=== PATIENT | female | born 1930 | race Caucasian/White ===

== ENCOUNTER 2017-02-09 04:32 | Inpatient (IN) ==
[2017-02-09] MEDS ORDERED: DUONEB (A & A) INH ONE (04:48)
--- NOTE | 2017-02-09 04:54 | PROVIDER DOCUMENTATION ---
HPI-Respiratory General - General Chief Complaint: Shortness of Breath Stated Complaint: COUGH Time Seen by Provider: 02/09/17 04:41 Source: patient, family (daughter) - History of Present Illness-Resp Nature of Presenting Problem: pt states she has COPD and chronic SOB and a chronic cough all of which are unchanged however this morning when she was coughing she coughed up large clots several times. Since then the amount of blood has greatly reduced to just blood tinged sputum. Her voice has been changing over the last several months and sounds clogged however it is not any worse this morning. She is having no pain or difficulty swallowing. No fever/chills. She wears O@ at 2l/m at home Review of Systems - Adult - REVIEW OF SYSTEMS - ADULT Constitutional: denies: chills, fever Eyes: denies: discharge Ears, Nose, Mouth & Throat: denies: ear pain, sinus problem, mouth swelling, throat pain, throat swelling Cardiovascular: denies: chest pain, edema, palpitations Respiratory: reports: chronic cough, hemoptysis, shortness of breath. denies: excessive sputum production, pleurisy Gastrointestinal: denies: abdominal pain, hematemesis, diarrhea, nausea, rectal bleeding, vomiting Genitourinary: reports: dysuria, frequency, flank pain Musculoskeletal: reports: back pain Integumentary: reports: no symptoms reported. denies: rash Neurological: reports: no symptoms reported Psychiatric: reports: no symptoms reported Endocrine: reports: no symptoms reported Hematologic/Lymphatic: reports: no symptoms reported Allergic/Immunologic: reports: no symptoms reported All Other Systems: Reviewed and Negative Past History - Adult - PAST MEDICAL HISTORY-ADULT Review of Records: reports: Old Records Reviewed, Nursing Assessment Review, Medications Reviewed, Social history reviewed & non-contributory. - SOCIAL HISTORY Living Situation: family Physical Exam-General - PHYSICAL EXAM-ADULT Initial Vital Signs Reviewed: Yes - CONSTITUTIONAL General Appearance: appears well, alert, no apparent distress - EYES Eyes: pink conjunctivae. negative: scleral icterus - HEAD, EARS, NOSE, MOUTH & THROAT HENMT: normocephalic/atraumatic, normal ENT inspection, pharynx normal. negative: angioedema - NECK Neck: non-tender, full range of motion, supple, normal inspection - RESPIRATORY Respiratory: chest non-tender, no pleuratic chest pain, no respiratory distress , no accessory muscle use, wheezing (mild). negative: lungs clear, normal breath sounds - CARDIOVASCULAR Cardiovascular: regular rate, rhythm, no edema, no murmur - GASTROINTESTINAL (ABDOMEN) Abdominal Exam: normal bowel sounds, non tender, soft, no organomegaly, no pulsatile mass - MUSCULOSKELETAL Back Exam: normal inspection, no CVA tenderness, no vertebral tenderness Extremity: normal range of motion, non-tender, normal gait, normal inspection, no pedal edema, no calf tenderness - SKIN Integumentary: normal color, normal turgor, warm/dry - NEUROLOGIC Neurologic: grossly normal, no motor/sensory deficits - PSYCHIATRIC Psych/Mental Status: normal mood/affect, normal thought content, normal thought process, oriented x 3 Progress - PLAN OF CARE/RESULTS Progress/Plan/Lab Results: Vital Signs - 8 hr 02/09/17 04:38 02/09/17 05:13 02/09/17 06:25 Temperature 97.8 F Pulse Rate 82 86 90 Respiratory Rate 22 23 21 Blood Pressure 137/91 135/90 O2 Sat by Pulse Oximetry 94 L 94 L 95 02/09/17 08:04 Temperature Pulse Rate 82 Respiratory Rate 22 Blood Pressure 143/80 O2 Sat by Pulse Oximetry 96 02/09/17 04:42 - Final Sputum Laboratory Results - last 24 hr 02/09/17 02/09/17 02/09/17 05:00 05:00 05:00 WBC 5.57 RBC 3.78 L Hgb 11.4 L Hct 35.2 L MCV 93.1 MCH 30.2 MCHC 32.4 L RDW Std Deviation 14.2 Plt Count 174 MPV 11.7 H Immature Gran % (Auto) 0.0 Neut % (Auto) 68.7 Lymph % (Auto) 16.7 L Navarro % (Auto) 12.4 H Eos % (Auto) 2.0 Baso % (Auto) 0.2 Immature Gran # (Auto) 0.00 Neut # (Auto) 3.83 Lymph # (Auto) 0.93 L Navarro # (Auto) 0.69 H Eos # (Auto) 0.11 Baso # (Auto) 0.01 PT INR PTT (Actin FS) D-Dimer 0.29 Sodium 140 Potassium 4.3 Chloride 97 L Carbon Dioxide 33 Anion Gap 10 BUN 33 H Creatinine 1.3 H Estimated GFR/1.73 m2 39 BUN/Creatinine Ratio 25 Glucose 99 Calculated Osmolality 287 Calcium 9.1 Total Bilirubin 0.27 AST 13 ALT 6 L Alkaline Phosphatase 71 Total Protein 6.8 Albumin 4.0 Globulin 2.8 Albumin/Globulin Ratio 1.4 02/09/17 05:00 WBC RBC Hgb Hct MCV MCH MCHC RDW Std Deviation Plt Count MPV Immature Gran % (Auto) Neut % (Auto) Lymph % (Auto) Navarro % (Auto) Eos % (Auto) Baso % (Auto) Immature Gran # (Auto) Neut # (Auto) Lymph # (Auto) Navarro # (Auto) Eos # (Auto) Baso # (Auto) PT 10.0 INR 0.96 PTT (Actin FS) 26.9 D-Dimer Sodium Potassium Chloride Carbon Dioxide Anion Gap BUN Creatinine Estimated GFR/1.73 m2 BUN/Creatinine Ratio Glucose Calculated Osmolality Calcium Total Bilirubin AST ALT Alkaline Phosphatase Total Protein Albumin Globulin Albumin/Globulin Ratio Orders Category Date Time Status CHEST-2 VIEWS [RAD] Stat Exams 02/09/17 04:[address] THORAX W/CONTRAST [CT] Stat Exams 02/09/17 06:49 Draft BLOOD CULTURE [BLDCUL] Stat Lab 02/09/17 09:06 Uncollected CBC WITH ELECTRONIC DIFF [HEME] Stat Lab 02/09/17 05:00 Completed CMP [COMPREHENSIVE METABOLIC PANEL] [CHEM] Stat Lab 02/09/17 05:00 Completed Ddimer [D-DIMER] [CHEM] Stat Lab 02/09/17 05:00 Completed PROTIME WITH INR [COAG] Stat Lab 02/09/17 05:00 Completed PTT [COAG] Stat Lab 02/09/17 05:00 Completed SPUTUM CULTURE WITH GRAM STAIN [RM] Routine Lab 02/09/17 04:42 Results 0.9% Sodium Chloride Inj [Ns] 1,000 ml Med 02/09/17 06:50 Discontinued IV 500 mls/hr Albuterol 2.5MG/Ipratrop 0.5MG [Duoneb (A & A)] Med 02/09/17 04:48 Discontinued 3 ml INH NOW ONE CefTRIAXONE 1 GM/NS [Rocephin 1 gm/Ns] Med 02/09/17 09:06 Active 1 gm in 50 ml IV NOW Levofloxacin 500 mg/D5w [Levaquin 500 mg/D5w] Med 02/09/17 09:06 Active 500 mg in 100 ml IV NOW Aerosol Treatments Routine Oth 02/09/17 04:48 Completed Aerosol Treatments Stat Ot 02/09/17 04:48 Completed Result Diagrams: 02/09/17 05:00 02/09/17 05:00 - CONSULTS/PCP/HOSPITALIST Notification Time Discussed: : Reason/Comments: Admit to Dr. Calderon Consult Disposition: Admit Departure - Departure Time of Disposition Decision: : DIAGNOSIS: Hematemesis Qualifiers: Nausea presence: without nausea Qualified Code(s): K92.0 - Hematemesis Pneumonia Qualifiers: Pneumonia type: due to unspecified organism Laterality: left Lung location: unspecified part of lung Qualified Code(s): J18.9 - Pneumonia, unspecified organism Disposition: ADMITTED INPATIENT 09 Certified Medical Emergency: Emergent Condition: Stable Referrals and Follow-Ups: Ashvin Alvarado [Primary Care Provider] - - Critical Care Note This patient required my direct & personal management of CC.: No
[2017-02-09 05:11] LABS: MANUAL DIFF NEEDED? NO
[2017-02-09 05:15] LABS: HEMOGLOBIN 11.4 g/dL (12.0-16.0); MCH 30.2 PG (27-31); MCV 93.1 FL (81-99)
[2017-02-09 05:19] LABS: BASO% 0.2 % (0.0-0.8); EOS# 0.11 X1000 (0.0-0.7); HEMATOCRIT 35.2 % (37.0-47.0); LYMPH# 0.93 X1000 (1.2-3.4); LYMPH% 16.7 % (20.5-51.1); MCHC 32.4 g/dL (33-37); MONO# 0.69 X1000 (0.11-0.59); MONO% 12.4 % (1.7-9.3); MPV 11.7 FL (7.4-10.4); NEUT% 68.7 % (42.2-75.2); PLT 174 X1000 (130-400); RBC 3.78 XMIL (4.2-5.4)
[2017-02-09 05:23] LABS: INR 0.96; PTT 26.9 Seconds (22.0-36.0)
[2017-02-09 05:31] LABS: CALCIUM 9.1 mg/dL (8.8-10.2); POTASSIUM 4.3 mmol/L (3.5-5.1); TOTAL BILIRUBIN 0.27 mg/dL (0.20-1.00); TOTAL PROTEIN 6.8 g/dL (6.3-8.3)
[2017-02-09] MEDS ORDERED: NS 1,000 ML IV ONE (06:50)
--- NOTE | 2017-02-09 08:49 | Diag Imaging Result Document ---
PROCEDURE NAME: CHEST-2 VIEWS - 02/09/2017 CHEST, TWO VIEWS: FINDINGS: The lungs are hyperexpanded. There is an increased AP diameter to the chest. The heart is borderline mildly prominent. The pulmonary vessels are small. There is a granuloma in the mid left lung and there are small calcified lymph nodes. No consolidation. Mild scoliosis. IMPRESSION: Emphysema.
[2017-02-09] MEDS ORDERED: LEVAQUIN 500 MG/D5W 500 MG/100 ML IVPB IV ONE (09:06)
[2017-02-09] MEDS ORDERED: ROCEPHIN 1 GM/NS 1 GM/50 ML IVPB IV ONE (09:06)
--- NOTE | 2017-02-09 09:06 | Diag Imaging Result Document ---
PROCEDURE NAME: CT THORAX W/CONTRAST - 02/09/2017 CT CHEST WITH INTRAVENOUS CONTRAST, 02/09/2017: A CT dose reduction protocol was used. COMPARISON: Previous chest x-ray. FINDINGS: There is a noncalcified pulmonary nodule in the left upper lobe measuring 12.5 mm. This is visible in the lateral mid lung on the chest x-ray. There is significant bronchitis particularly of the lingula and lower lobe bronchi. There is also some bronchopneumonia in the lingula. There is some mucous plugging in small airways in the left lower lobe. There is some hazy atelectasis or infiltrate in the posterior lung base on the right. There is significant scoliosis at the upper lumbar spine. There is severe degeneration throughout the entire spine. No acute bony lesions. The thyroid gland is somewhat enlarged indicating goiter is present. There is heavy vascular disease of the vessels of the aortic arch. IMPRESSION: 1. Moderate size, indeterminate nodule in the left upper lobe. 2. Fluid throughout bronchi and in the left lung. May represent pulmonary hemorrhage from a left sided bronchus such as the mainstem bronchus. 3. Probable atelectasis or scarring in the right lung base. [facility]
[2017-02-09] MEDS ORDERED: SODIUM CHLORIDE 0.9% INJ SCH (13:00)
--- NOTE | 2017-02-09 14:35 | Diag Imaging Result Document ---
PROCEDURE NAME: NECK W/O CONTRAST - 02/09/2017 CT OF THE NECK WITHOUT CONTRAST: FINDINGS: There are dense calcifications in the carotid bulbs bilaterally. The nasopharynx is unremarkable in appearance. The salivary glands are symmetrical. There is no evidence of significant adenopathy. Above the level of the glottis and more or less obscuring the epiglottis there is a soft tissue appearing mass measuring 3.5 x 2.2 x 3.5 cm. There is apical pleural fibrosis bilaterally. There are degenerative disk and facet changes in the cervical spine. There is a mucous retention cyst in the right maxillary sinus. IMPRESSION: 1. Epiglottic mass as described. 2. Further evaluation with contrast and/or MRI may be desirable.
[2017-02-09] MEDS: ZITHROMAX 500 MG/NS 500 MG/250 ML IVPB IV SCH (15:09)
[2017-02-09] MEDS: NS 1,000 ML IV SCH (15:09)
[2017-02-09] MEDS: NICODERM PATCH TD SCH (15:09)
[2017-02-09] MEDS: PROTONIX IV SCH (15:09)
--- NOTE | 2017-02-09 15:24 | HISTORY AND PHYSICAL ---
PCP: Dr. Alvarado. CHIEF COMPLAINT: Hemoptysis. HISTORY OF PRESENT ILLNESS: Mrs. Avila is a pleasant 86-year-old female with a history of COPD on 20/04 home O2, continued nicotine dependence, arthritis and type 2 diabetes who presents with fairly severe hemoptysis that began acutely this morning. She has had however chronic cough for few weeks now. She has been coughing up clear sputum and denies any fevers or chills. She has had a difficult time talking because she has what she feels like she has throat fullness, possibly upper airway fullness. She became concerned when she started having hemoptysis and came to the ER. She does report that she has been coughing up clots this morning but since then has changed to a blood tinged sputum. Again no fevers or chills. No chest pain. No real shortness of breath to speak of. She denies lower extremity edema. No orthopnea, no abdominal pain, nausea or vomiting. In the ER a CT of the chest with contrast was done which showed moderate-sized indeterminate nodule left upper lobe, bronchitis with bronchopneumonia in the left lung and probable atelectasis or scarring in the lung base on the right. Labs show mild anemia, mild renal insufficiency otherwise negative. Her O2 saturations are within normal limits on oxygen and she is going to be admitted further treatment and evaluation. PAST MEDICAL HISTORY: 1. COPD on home O2. 2. Arthritis, patient is unsure she has rheumatoid or osteo. 3. Type 2 diabetes. 4. IBS. 5. Hypothyroidism. 6. GERD. SURGICAL HISTORY: Hysterectomy. SOCIAL HISTORY: Patient smokes half pack a day. She is . She denies alcohol use or drug use. She lives with her daughter. FAMILY HISTORY: Mother from colon cancer. Father from stroke and heart attack. They were both 93. ALLERGIES: No known drug allergies. HOME MEDICATIONS: Pepcid 20 mg daily, Synthroid 75 mcg daily, Linzess 290 mcg daily, metformin 1000 mg daily. REVIEW OF SYSTEMS: Fourteen-point review of systems obtained and found to be negative with the exception of the HPI. PHYSICAL EXAMINATION: VITAL SIGNS: Blood pressure is 119/68, heart rate 93, respiratory rate 18, O2 saturation 95% on 2 L, temperature is 99 degrees. GENERAL: This is an elderly and frail-appearing 86-year-old female lying in hospital bed in no acute distress. NEUROLOGIC: The patient is awake, alert, oriented. She follows commands without focal deficits. HEENT: Head is atraumatic, normocephalic. Her pupils are equal, round and reactive to light. Oral mucosa is moist. Trachea is midline. No JVD. No carotid bruits. CHEST: Diminished throughout with crackles and rhonchi on the left greater than the right. CV: Regular rate and rhythm. S1-S2 is noted a 1/6 systolic ejection murmur. GI: Soft, nondistended, nontender, bowel sounds are active. EXTREMITIES: No edema, clubbing, cyanosis. Pulses are palpable bilaterally. DIAGNOSTIC DATA: Chest CT please see HPI. Chest x-ray shows emphysema. WBC 5.57, hemoglobin 11.4, hematocrit 35.2, platelet count 174,000, INR 0.96, D-dimer 0.29, sodium 140, potassium 4.3, chloride 97, CO2 33, anion gap 10, BUN 33, creatinine 1.3, GFR 39, calcium 9.1. LFTs within normal limits. ASSESSMENT AND PLAN: 1. Hemoptysis: Likely secondary to pneumonia and bronchitis. Will treat both of those with antibiotics and breathing treatments. Will also consult with Dr. Uriarte. Blood cultures have been obtained. 2. Lung nodule: Dr. Uriarte has been consulted, will likely need further evaluation with biopsy. 3. Globus Pharyngis/Dysphagia: We will check a CT of the neck to rule out mass, may possibly need ENT consult. 4. Community-acquired pneumonia: Continue Rocephin and azithromycin, breathing treatments and aggressive pulmonary toilet. 5. Chronic obstructive pulmonary disease exacerbation: Patient is not wheezing so will hold off on steroids for now but continue with standard COPD treatment including breathing treatments, nebulizers, aggressive pulmonary toilet. 6. Type 2 diabetes: Check hemoglobin A1c. Add pattern sugars. 7. Nicotine dependence: Patient has been highly advised to quit smoking. Will write a nicotine patch and continue daily cessation education. Further recommendations to follow. Dictated by WOLF Deleon for Veena Vidales MD cc: MD Veena Tom MD [facility]
[2017-02-09] MEDS: DUONEB (A & A) INH SCH ×3 (16:14→23:20)
[2017-02-09] MEDS: HUMALOG SUBQ SCH ×2 (17:31→21:42)
--- NOTE | 2017-02-09 18:11 | CONSULTATION ---
DATE OF CONSULTATION: 02/09/2017 HISTORY OF PRESENT ILLNESS: An 86-year-old admitted with cough, hemoptysis, some mild dysphagia, no odynophagia. Denies pain. Has a history of COPD. Has had a muffled voice for over 1 year. Workup in emergency room revealed probable pneumonia, additionally possible left upper lobe nodule, and an epiglottic lesion. Asked to evaluate. PAST MEDICAL HISTORY: Reviewed. SOCIAL AND FAMILY HISTORY: Reviewed. REVIEW OF SYSTEMS: Noted. PHYSICAL EXAMINATION: General: Well nourished white female in no acute distress. Normal respirations. Nose: Septal deviation to right. Oral cavity: pink. Sclerae: No lesions. Tongue: Protrudes midline. Hypopharynx and larynx: Flexible fiberoptic exam with exophytic lesion, possibly arising from the epiglottis, irregular appearance, cannot visualize true cords due to this lesion. Airway appears intact and very adequate around this. Neck: No adenopathy. 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 Discussed with family. Obvious concern is carcinoma. I have discussed treatment options briefly. Would like her evaluated at [facility]. I have discussed with her physician. Will tentatively set up appointment end of this week at [facility]. cc: Ronn Estrada MD
--- NOTE | 2017-02-09 21:32 | CONSULTATION ---
DATE OF CONSULTATION: 02/09/2017 PULMONARY CONSULTATION REQUESTING PHYSICIAN: Veena Vidales MD. REASON FOR CONSULTATION: Hemoptysis and pulmonary nodule. HISTORY OF PRESENT ILLNESS: Ms. Avila is an 86-year-old white female with a greater than 50- pack-year history for tobacco, who has had a 20-30 pound weight loss over the last 6 months. The patient has had progressive changes in her voice. This morning, she woke up and coughed up blood. Patient came to the emergency room. A CT scan of the thorax revealed a nodule in the left upper lobe and evidence of fluid filled airways in the left lower lobe. The patient reports she had a CT scan of the thorax earlier this year in [place] and was told that this nodule was stable although it is not clear how long she has had this nodule present. The patient has had progressive changes in her voice over the last 6 months to 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 This was evaluated by Dr. Estrada and he will schedule her a followup at the [facility] later this week. PAST MEDICAL HISTORY: 1. COPD with ongoing tobacco use. 2. Known pulmonary nodule by patient's report in the left upper lobe. I am not sure how long this nodule has been present. 3. Arthritis. 4. Type 2 diabetes mellitus. 5. Hypothyroidism. 6. Gastroesophageal reflux. 7. Status post hysterectomy. SOCIAL HISTORY: Ongoing tobacco use. No alcohol use. She lives with her daughter. FAMILY HISTORY: Positive for colon cancer and strokes. REVIEW OF SYSTEMS: Notable for increased difficulty with swallowing, weight loss, increased sputum production, increased cough and increased dyspnea with significant weight loss. PHYSICAL EXAMINATION: General: Reveals a well-developed, well-nourished, white female, with a "hot potato voice saying." She has no increased work of breathing. Vital Signs: Blood pressure 146/61, heart rate 83, respiration rate 19, oxygen saturation 92% on nasal cannula. HEENT: Pupils are equal and reactive. Oropharynx evaluation was performed. The epiglottis mass cannot be seen without the aid of a mirror. Neck: Supple. Chest: Reveals occasional rhonchi bilaterally. Cardiac Examination: Regular rate. Normal S1, normal S2. Abdomen: Soft without hepatosplenomegaly. Extremities: Without edema. LABORATORIES: White blood count 5.57, hemoglobin 11.4, platelet count 174,000. IMPRESSION: An 86-year-old with large epiglottic mass which most likely has bled into her trachea leading to hemoptysis. The fluid in the lungs most likely represents an aspiration event. The patient will need an urgent evaluation of this epiglottal mass so that she does not lose her airway. She has a solitary pulmonary nodule in the left upper lobe and was informed earlier this year that it was stable. This could represent a previous infection such as a granuloma but would also be consistent with a primary bronchogenic carcinoma or metastatic disease. However, with the large epiglottic mass, we would recommend delaying evaluation of this nodule until her airway has been improved with removal or treatment of this tumor. RECOMMENDATIONS: 1. Agree with referral to the [facility] as you have planned. 2. Obtain previous CT scans of the thorax from [place] for evaluation of the nodule. 3. Smoking cessation was recommended. 4. Additional recommendations pending hospital course. cc: Marito Uriarte MD
[2017-02-10] MEDS: DUONEB (A & A) INH SCH ×4 (03:32→15:42)
[2017-02-10] MEDS: NS 1,000 ML IV SCH ×2 (06:33→06:58)
[2017-02-10] MEDS: HUMALOG SUBQ SCH ×2 (06:35→12:50)
[2017-02-10 06:57] LABS: HEMATOCRIT 31.4 % (37.0-47.0); HEMOGLOBIN 9.7 g/dL (12.0-16.0); MCH 29.7 PG (27-31); MCHC 30.9 g/dL (33-37); MPV 12.3 FL (7.4-10.4); RBC 3.27 XMIL (4.2-5.4)
[2017-02-10 07:05] LABS: POTASSIUM 3.9 mmol/L (3.5-5.1)
--- NOTE | 2017-02-10 08:13 | Diag Imaging Result Doc PS360 ---
CHEST-2 VIEWS - 02/10/2017 INDICATION: Hypoxia COMPARISON: 02/09/2017 FINDINGS: There are some stable ill-defined infiltrate or scarring at the cardiac apex and at the costophrenic angles bilaterally. No new infiltrates. No pneumothorax or significant effusion. Heart size remains top normal. IMPRESSION: No change from prior. Electronically signed by Philip Mejias 02/10/2017 8:11 AM
[2017-02-10] MEDS: NICODERM PATCH TD SCH (08:40)
[2017-02-10] MEDS ORDERED: VITAMIN D PO SCH (09:00)
[2017-02-10] MEDS ORDERED: SYNTHROID PO SCH (09:00)
[2017-02-10] MEDS ORDERED: ROCEPHIN 1 GM/NS 1 GM/50 ML IVPB IV SCH (10:00)
--- NOTE | 2017-02-10 12:35 | PROGRESS NOTE ---
DATE: 02/10/2017 Today Ms. Avila refers to be doing a little better. Has not vomited anymore or coughed up any more. According to her she has been having some dysphagia with food sticking in her throat for a long time. Has been evaluated over here. We are just pending arrangements to transfer her to [facility]. OBJECTIVE: Vital signs: Blood pressure is 124/68, pulse of 85, respirations 16, temperature 97.9 degrees. General: Ms. Avila is an 86-year-old, female. She was actually sitting up, eating her lunch and she was not in any distress. HEENT: Mucosa is pink and moist. Anicteric. Acyanotic. Neck: Supple. Chest: Clear. A few bibasilar crepitations. Cardiovascular: Regular rate and rhythm. Extremities: No pedal edema. SPANISH TRANSLATOR: Patient is alert and oriented x4. LABORATORY DATA: WBC is 4.49, hemoglobin is 9.7, platelet count of 149,000. Chemistry was reviewed, completely unremarkable. A CT scan of the chest done yesterday shows moderate size intermediate nodule in the left upper lobe. There has been fluid throughout bronchi and in the left lung. May represent pulmonary hemorrhage from left bronchus as in the mainstem bronchus, probably atelectasis and/or scarring in the right base. A neck CT scan which was done yesterday shows epiglottic mass. Chest x-ray done this morning shows some stable old ill-defined infiltrates or scarring at the apex and at the costophrenic angles. No pneumothorax or significant effusion. ASSESSMENT: 1. Large epiglottic mass. Patient has been evaluated by ENT and there is a plan to send the patient to [facility]. 2. History of COPD with ongoing tobacco use. 3. Type 2 diabetes mellitus. 4. Hypothyroidism. 5. Hemoptysis on presentation likely due to the supraglottic mass. So in general I think Ms. Avila is relatively stable. We are still awaiting arrangement to send her to [facility]. I called Dr. Estrada's office but he is currently in surgery so we will be waiting to hear from him if he has had any contact with [facility] or if we have to do anything else. cc: Amado Caballero MD
[2017-02-10] MEDS: PROTONIX IV SCH (13:17)
[2017-02-10] MEDS: ZITHROMAX 500 MG/NS 500 MG/250 ML IVPB IV SCH (13:17)
[2017-02-10 14:25] VITALS: BP 153/58
[2017-02-10] MEDS ORDERED: AUGMENTIN LIQUID PO SCH (21:00)
--- NOTE | 2017-02-11 07:04 | DISCHARGE SUMMARY ---
ADMISSION DATE: 02/09/2017 DISCHARGE DATE: 02/10/2017 FOLLOWUP: Neck and head clinic in [facility] tomorrow at 1:30 p.m. The patient will also follow up with Dr. Estrada. DISPOSITION: Home, and tomorrow patient has an appointment as stated above. CONSULTATIONS DURING THIS ADMISSION: 1. ENT was consulted. Patient was seen by Dr. Estrada. 2. Pulmonary Medicine was consulted. Patient was seen by Dr. Uriarte. IMAGING STUDIES OF SIGNIFICANCE: 1. A CT scan of the chest was done, which showed fluid throughout bronchi and in the left lung, may represent pulmonary hemorrhage, probable atelectasis or scarring in the right lung base. 2. A CT scan of the neck showed epiglottic mass. DISCHARGE MEDICATIONS: 1. Metformin 1000 mg daily. 2. Famotidine 20 mg daily. 3. Allopurinol 100 mg daily. 4. Levothyroxine 75 mcg daily. 5. Furosemide 40 mg daily. 6. Amoxicillin 600 p.o. b.i.d. 7. Ergocalciferol 5000 daily. ADMISSION DIAGNOSES: 1. Hemoptysis. 2. Lung nodule. 3. Community-acquired pneumonia. 4. Nicotine dependence. DISCHARGE DIAGNOSES: 1. Large epiglottic mass. 2. Chronic obstructive pulmonary disease, with ongoing tobacco use. 3. Diabetes type 2. 4. Hypothyroidism. 5. Hemoptysis on presentation, likely due to supraglottic mass. 6. Some fluid throughout the bronchi on CT scan in the left, possible aspiration (possible aspiration pneumonia). PRESENTING COMPLAINT: Hemoptysis. HISTORY OF PRESENTING COMPLAINT: Ms. Avila is an 86-year-old female with a history of COPD, on home oxygen, who presented to the emergency department because of fairly severe hemoptysis that began on the morning of presentation. Upon presentation, patient was evaluated. CT scan of the neck did reveal a supraglottic mass. The patient also has been complaining of hoarseness and food sticking upon swallowing. The patient was admitted for further evaluation. HOSPITAL COURSE: During the hospital stay, patient was started on IV antibiotics. A consult was placed for both Pulmonary Medicine and ENT. Dr. Estrada saw the patient, and an arrangement was done for Head and Neck department in [place] to follow up for further evaluation and treatment. Patient was also seen by Pulmonary Medicine. Dr. Uriarte saw the patient. Was okay for patient to be transferred to take care of the upper airway issues first. Today, I spoke on [address] Estrada. The patient will be discharged home today on oral antibiotics, and has an appointment for tomorrow afternoon to follow up at the Head and Neck surgery department in [place] for further evaluation. At the time of discharge, the patient was relatively stable. Her vitals were reviewed. Blood pressure is 153/58, pulse of 85, respiration is 17, temperature is 98.4 degrees. Lab work for today was also reviewed. Please refer to the details of my progress note for today. The patient will be discharged home in relatively stable condition. All of the discharge instructions were discussed with her and the family members. TIME SPENT FOR DISCHARGE: 37 minutes. cc: Amado Caballero MD
== END 2017-02-10 18:24 | disposition home or self-care (01) ==
LOC: ED 04:32 → SUATTDRO 11:43 → 3N 11:43
PROVIDERS: ATTEND Internal Medicine